=== PATIENT | male | born 1990 | race Caucasian/White ===

== ENCOUNTER 2016-08-18 10:23 | Day surgery (SDC) | payer OTHER ==
[2016-08-18] MEDS ORDERED: LR 1,000 ML ONE (10:57)
[2016-08-18] MEDS ORDERED: MEFOXIN 1 GM/D5W 50 ML ONE (15:18)
[2016-08-18] MEDS ORDERED: CEFOXITIN MISC ONE (15:20)
[2016-08-18] MEDS ORDERED: DEXTROSE MISC ONE (15:20)
[2016-08-18] MEDS ORDERED: NORCO-10 PO ONE (16:16)
--- NOTE | 2016-08-18 16:29 | OPERATIVE NOTE ---
PROCEDURE DATE: 08/18/2016 PROCEDURE: Endoscopic retrograde cholangiopancreatography, stent removal. PREOPERATIVE DIAGNOSIS: Sclerosing cholangitis. POSTOPERATIVE DIAGNOSIS: Sclerosing cholangitis. HISTORY: This 26-year-old gentleman, who has history of ulcerative colitis had presented with obstructive jaundice. He had an ERCP and stent placement by Dr. Newell in [place]. He is here for stent removal. DESCRIPTION OF PROCEDURE: Informed consent was obtained from the patient. The procedure, risks, benefits, alternatives were explained in layman's terms. He understood. All his pertinent questions were answered. Patient brought to the endoscopy unit and was premedicated as per Anesthesia. After adequate sedation, while he was lying in left lateral position the duodenoscope was introduced into the posterior pharynx and advanced manually into the esophagus. Through the esophagus, it was advanced to the stomach. The stomach was insufflated. Pylorus identified. Scope was then passed through the pylorus into the duodenal bulb, and then 2nd part of duodenum where the major papilla was identified. The minor papilla was first identified, which was normal looking. Major papilla was seen where a stent was coming out from the major papilla almost 3/4 of it was actually hanging out of the major papilla. Using a snare, the distal end of the stent was grasped and it was removed without any difficulty. The scope was then reintroduced back into the 2nd portion of the duodenum where using a cannula, common bile duct was preferentially cannulated. Contrast injected then an occlusion cholangiogram was obtained. I did not see any dominant stricture, although both the intrahepatic and extrahepatic ducts appeared to be thinner, but no irregularity noted. No dominant stricture was seen. Contrast was flowing out very nicely. At this point, I decided not to place any stent. The patient is already on Remicade and Sumit. The scope was then withdrawn. Patient tolerated the procedure well. No complications noted. Patient was then transferred to the recovery area in a stable condition. IMPRESSION: 1. Sclerosing cholangitis. 2. Ulcerative colitis. 3. Stent removed. RECOMMENDATION: 1. Patient will be given 5 days of Cipro. He received antibiotic prior to his procedure as well. 2. Continue Sumit. 3. Continue Remicade. 4. Follow up with me in a couple weeks with LFT, advised to follow up with primary care as scheduled.
[2016-08-18 16:41] VITALS: BP 122/76
--- NOTE | 2016-08-18 17:37 | Diag Imaging Result Document ---
PROCEDURE NAME: ERCP-BILIARY AND PANCREATIC - 08/18/2016 ERCP: COMPARISON: 08/01/2016. FINDINGS: The exam was performed by the patient's endoscopist. The common bile duct stent was removed. Injection of the duct demonstrated no significant duct dilation. There was irregularity of the ducts throughout the liver. This suggests sclerosing cholangitis. IMPRESSION: See findings.
[2016-08-18] MEDS ORDERED: DIPRIVAN 1% ONE (17:43)
[2016-08-18] MEDS ORDERED: FENTANYL ONE (17:43)
[2016-08-18] MEDS ORDERED: DIPRIVAN 1% 50 ML ONE (17:44)
[2016-08-19] MEDS ORDERED: ZOFRAN ONE (08:17)
[2016-08-19] MEDS ORDERED: XYLOCAINE-MPF 2% ONE (08:17)
== END 2016-08-18 16:39 | disposition home or self-care (01) ==
LOC: ENDO 10:23 → OPS 16:39
PROVIDERS: ATTEND Internal Medicine Gastroenterology
DX: K83.0 Cholangitis (principal)
CPT/HCPCS: 74330; C1769; J0694; J2405; J3010; J7120; Q9966